=== PATIENT | male | born 1955 | race Caucasian/White ===

== ENCOUNTER 2024-03-15 23:52 | Emergency (ER) | payer OTHER ==
[~2024-03-15] VITALS: Ht 180.3 cm; Wt 80.7 kg
[2024-03-16 00:04] VITALS: BP 118/66; TEMP 98.4; O2SAT 93
[2024-03-16] MEDS ORDERED: IBUPROFEN 600 MG TABLET ONE (00:20)
[2024-03-16] MEDS ORDERED: HYDROCODONE/APAP 5/325MG TABLET ONE ×2 (00:20→03:25)
[2024-03-16] MEDS: IBUPROFEN 600 MG TABLET PO ONE (00:25)
[2024-03-16] MEDS: HYDROCODONE/APAP 5/325MG TABLET PO ONE ×2 (00:25→03:27)
== END 2024-03-16 03:29 | disposition left against medical advice (07) ==
LOC: ER 23:56
DX: S00.12XA Contusion of left eyelid and periocular area, initial encounter (principal); R07.89 Other chest pain; Y04.0XXA Assault by unarmed brawl or fight, initial encounter; Y93.89 Activity, other specified; Y92.89 Other specified places as the place of occurrence of the external cause; Y99.8 Other external cause status
CPT/HCPCS: 71100-TC